=== PATIENT | male | born 1960 | race Caucasian/White ===

== ENCOUNTER 2023-03-17 13:35 | Emergency (ER) | payer MEDICAID, OTHER ==
[~2023-03-17] VITALS: Ht 180.3 cm; Wt 81.6 kg
[2023-03-17 13:40] VITALS: BP 128/81; TEMP 98.2; O2SAT 98
[2023-03-17 15:33] LABS: APPEARANCE,URINE CLEAR (CLEAR); BILIRUBIN,URINE NEGATIVE (NEGATIVE); BLOOD, URINE NEGATIVE Ery/uL (NEGATIVE); COLOR,URINE YELLOW (YELLOW); KETONES,URINE NEGATIVE (NEGATIVE); LEUKOCYTE ESTERASE ,URINE NEGATIVE (NEGATIVE); NITRITE, URINE NEGATIVE (NEGATIVE); PROTEIN,URINE NEGATIVE (NEGATIVE); UGLUCOSE NEGATIVE (NEGATIVE); UROBILINOGEN,URINE 0.2 EU/dL (0.2)
[2023-03-17] MEDS ORDERED: NYST15OI TP (16:03)
[2023-03-17] MEDS ORDERED: MUPI22OI2 TP (16:03)
[2023-03-21 03:06] LABS: CHLAMYDIA TRACHOMATIS NAA Negative (Negative); NEISSERIA GONORRHOEAE NAA Negative (Negative)
== END 2023-03-17 16:09 | disposition home or self-care (01) ==
LOC: ER 13:41
DX: N48.1 Balanitis (principal)
CPT/HCPCS: 87086-TC; 87491; 87591

== ENCOUNTER 2024-03-08 16:46 | Emergency (ER) | payer OTHER ==
[~2024-03-08] VITALS: Ht 180.3 cm; Wt 87.1 kg
[~2024-03-08 16:46] MED LIST: MUPI22OI2 TP; NYST15OI TP
[2024-03-08 17:07] VITALS: BP 127/77; TEMP 97.9; O2SAT 99
[2024-03-08] MEDS ORDERED: CLOT15CR27 TP (18:39)
[2024-03-08] MEDS ORDERED: HYDR28.32 TP (18:39)
== END 2024-03-08 18:49 | disposition home or self-care (01) ==
LOC: ER 18:36
DX: B36.9 Superficial mycosis, unspecified (principal); R10.33 Periumbilical pain; Z87.19 Personal history of other diseases of the digestive system